=== PATIENT | female | born 1930 | race Hispanic/Latino ===

== ENCOUNTER 2018-01-23 04:28 | Emergency (ER) | payer MEDICARE, OTHER ==
[2018-01-23 05:00] VITALS: BMI 27.6
--- NOTE | 2018-01-23 05:04 | ED PDOC ---
Arrival/HPI - General Time Seen by Provider: 01/23/18 04:33 Historian: Patient - History of Present Illness Narrative History of Present Illness (Text): 01/23/18 05:01 An 87 year old female, whose past medical history includes hypertension, presents to the emergency department complaining of right shoulder, knee, hip, neck and head pain s/p a fall a few weeks ago. The patient denies fevers, chills , headache, dizziness, LOC, chest pain, shortness of breath, dyspnea on exertion , cough, abdominal pain, nausea, vomiting, diarrhea, back pain, neck pain, urinary/bowel changes, or any other complaint. PMD: Dr. Monet Time/Duration: Other (Few Weeks) Symptom Onset: Gradual Symptom Course: Worsening Activities at Onset: Rest, Light Context: Home Past Medical History - Provider Review Nursing Documentation Reviewed: Yes - Infectious Disease Hx of Infectious Diseases: None - Tetanus Immunization Tetanus Immunization: Unknown - Past Medical History Past Medical History: No Previous - Cardiac Hx Hypertension: Yes - Psychiatric Hx Depression: No Hx Emotional Abuse: No Hx Physical Abuse: No Hx Substance Use: No - Past Surgical History Past Surgical History: No Previous - Anesthesia Hx Anesthesia: No Hx Anesthesia Reactions: No Hx Malignant Hyperthermia: No - Suicidal Assessment Feels Threatened In Home Enviroment: No Family/Social History - Physician Review Nursing Documentation Reviewed: Yes Family/Social History: No Known Family HX Smoking Status: Never Smoked Hx Alcohol Use: No Hx Substance Use: No Hx Substance Use Treatment: No Allergies/Home Meds Allergies/Adverse Reactions: Allergies No Known Allergies Allergy (Verified 03/27/16 03:08) Review of Systems - Physician Review All systems were reviewed & negative as marked: Yes - Review of Systems Constitutional: absent: Fevers, Night Sweats Respiratory: absent: SOB, Cough Cardiovascular: absent: Chest Pain, KNAPP Gastrointestinal: absent: Abdominal Pain, Stool Changes, Diarrhea, Nausea, Vomiting Genitourinary Female: absent: Urine Output Changes Musculoskeletal: Other (Right head, neck, shoulder, hip, and knee pain.) Neurological: absent: Headache, Dizziness Physical Exam Vital Signs Temp Pulse Resp BP Pulse Ox 01/23/18 17:10 97.7 F 82 16 130/70 99 01/23/18 10:08 76 16 137/69 99 01/23/18 10:07 78 16 126/78 98 01/23/18 08:00 80 16 130/70 97 01/23/18 05:58 97.7 F 86 20 125/72 96 01/23/18 04:28 138/67 Appearance: Positive for: Non-Toxic, Unkept (Patient covered in fleas and flea bites.) Pain Distress: None Mental Status: Positive for: Alert and Oriented X 3 - Systems Exam Head: Present: Atraumatic, Normocephalic Pupils: Present: PERRL Extroacular Muscles: Present: EOMI Conjunctiva: Present: Normal Mouth: Present: Moist Mucous Membranes Neck: Present: Normal Range of Motion Respiratory/Chest: Present: Clear to Auscultation, Good Air Exchange. No: Respiratory Distress, Accessory Muscle Use Cardiovascular: Present: Regular Rate and Rhythm, Normal S1, S2. No: Murmurs Abdomen: No: Tenderness, Distention, Peritoneal Signs Back: Present: Normal Inspection Upper Extremity: Present: Normal Inspection. No: Cyanosis, Edema Lower Extremity: Present: Normal Inspection. No: Edema Neurological: Present: GCS=15, CN II-XII Intact, Speech Normal Skin: Present: Warm, Dry, Normal Color, Other (Patient covered in fleas and flea bites. ). No: Rashes Psychiatric: Present: Alert, Oriented x 3, Normal Insight, Normal Concentration Medical Decision Making ED Course and Treatment: 01/23/18 05:03 Impression: An 87 year old female presents to the emergency department with a complaint of right head, neck, shoulder, hip and knee pain s/p fall a few weeks ago. Plan: -- Head/ Cervical Spine CT -- EKG -- Pelvis/ Right Knee/ Right Shoulder X-Ray -- Urinalysis -- Labs -- Reassess and disposition Progress Notes: - Lab Interpretations Lab Results: 01/23/18 06:35 01/23/18 06:35 Lab Results 01/23/18 06:35: WBC 3.9 L D, RBC 3.56, Hgb 11.0 L, Hct 31.9 L, MCV 89.6, MCH 30.9, MCHC 34.5, RDW 14.2, Plt Count 218, MPV 10.2, Gran % 64.7, Lymph % (Auto) 21.7 L, [place] % (Auto) 11.0 H, Eos % (Auto) 2.3, Baso % (Auto) 0.3, Gran # 2.53, Lymph # (Auto) 0.9 L, [place] # (Auto) 0.4, Eos # (Auto) 0.1, Baso # (Auto) 0.01 01/23/18 06:35: Sodium 140, Potassium 4.2, Chloride 110 H, Carbon Dioxide 20 L, Anion Gap 14, BUN 34 H, Creatinine 1.6 H, Est GFR ( Amer) 37, Est GFR ( Non-Af Amer) 30, Random Glucose 96, Calcium 8.6, Total Bilirubin 0.7, AST 18, ALT 23, Alkaline Phosphatase 63, Troponin I 0.04 D, Total Protein 7.4, Albumin 3.7, Globulin 3.6, Albumin/Globulin Ratio 1.0 L I have reviewed the lab results: Yes - RAD Interpretation Radiology Orders: 01/23/18 04:59 HEAD W/O CONTRAST [CT] Stat 01/23/18 05:00 CERVICAL SPINE W/O CONTRAST [CT] Stat 01/23/18 05:01 PELVIS W/OBLIQUES (3VWS) [RAD] Stat KNEE RIGHT 2 VIEWS (AP & LAT) [RAD] Stat SHOULDER RIGHT [RAD] Stat 01/23/18 10:08 CHEST,ABDOMEN, PELVIS W/O CONT [CT] Stat - EKG Interpretation Interpreted by ED Physician: Yes Type: 12 lead EKG - Medication Orders Current Medication Orders: Discontinued Medications Sodium Chloride (Sodium Chloride 0.9%) 1,000 mls @ 150 mls/hr IV .Q6H40M BRIAN Last Admin: 01/23/18 10:42 Dose: 150 mls/hr eMAR Start Stop Document 01/23/18 10:42 MS (Rec: 01/23/18 10:44 MS [id number]) Intravenous Solution Start Date 01/23/18 Start Time 10:44 - Transfer of Care Patient signed out to Dr:: rekha - Clairibe Statement The provider has reviewed the documentation as recorded by the Malika Chavarria Provider Clairibe Attestation: All medical record entries made by the Scribe were at my direction and personally dictated by me. I have reviewed the chart and agree that the record accurately reflects my personal performance of the history, physical exam, medical decision making, and the department course for this patient. I have also personally directed, reviewed, and agree with the discharge instructions and disposition. Disposition/Present on Arrival - Present on Arrival Any Indicators Present on Arrival: No History of DVT/PE: No History of Uncontrolled Diabetes: No Urinary Catheter: No History Surgical Site Infection Following: None - Disposition Have Diagnosis and Disposition been Completed?: Yes Diagnosis: Accidental fall, Closed fracture of acromion, Multiple contusions, Dehydration , Acute kidney injury Disposition: HOME/ ROUTINE Disposition Time: 07:00 Condition: STABLE Discharge Instructions (ExitCare): Preventing Falls in the Older Adult, Dehydration, Adult (DC), Shoulder Blade Fracture (DC), Contusion (DC) Print Language: ARMENIAN Additional Instructions: You must follow up with an orthopedic surgeon for the right shoulder fracture - preferably within one week. Follow up with your primary care doctor for further care. Avoid medication such as aleve or motrin (anti-inflammatories) for pain. You may take extra strength Tylenol as needed for pain. MIKKI WAGGONER, thank you for letting us take care of you today. Your provider was Dr. Tan Galaviz and you were treated for pain. The emergency medical care you received today was directed at your acute symptoms. If you were prescribed any medication, please fill it and take as directed. It may take several days for your symptoms to resolve. Return to the Emergency Department if your symptoms worsen, do not improve, or if you have any other problems. Please contact your doctor or call one of the physicians/clinics you have been referred to that are listed on the Patient Visit Information form that is included in your discharge packet. Bring any paperwork you were given at discharge with you along with any medications you are taking to your follow up visit. Our treatment cannot replace ongoing medical care by a primary care provider outside of the emergency department. Thank you for allowing the [facility] team to be part of your care today. If you had an X-Ray or CT scan: A Radiologist will review the ED reading if any change in treatment is needed we will contact you. If you had a blood, urine, or wound culture: It will take several days for the results, if any change in treatment is needed we will contact you. If you had an STI test: It will take 48 hours for the results. Please call after 1 week if you have not heard back. Referrals: Mastromonaco,Edward, DO [Staff Provider] - Follow up with primary Forms: [employer] (Puerto Rican)
[2018-01-23 05:59] VITALS: TEMP 97.7
[2018-01-23 06:53] LABS: BASO # 0.01 K/mm3 (0.0-2.0); BASO % 0.3 % (0.0-3.0); EOS # 0.1 (0.0-0.7); EOS % 2.3 % (1.5-5.0); GRAN # 2.53 (1.4-6.5); GRAN % 64.7 % (50.0-68.0); LYMPH # 0.9 (1.2-3.4); LYMPH % 21.7 % (22.0-35.0); MEAN CELL VOLUME 89.6 fl (80.0-105.0); MEAN CORPUSCULAR HEMOGLOBIN 30.9 pg (25.0-35.0); MEAN CORPUSCULAR HGB CONC 34.5 g/dl (31.0-37.0); MEAN PLATELET VOLUME 10.2 fl (7.0-11.0); MONO # 0.4 (0.1-0.6); RBC 3.56 10^6/uL (3.5-6.1); RED CELL DISTRIBUTION WIDTH 14.2 % (11.5-14.5)
[2018-01-23 07:02] LABS: ALBUMIN 3.7 g/dL (3.0-4.8); CALCIUM 8.6 mg/dL (8.4-10.5)
[2018-01-23 07:04] LABS: WHITE BLOOD COUNT 3.9 10^3/ul (4.5-11.0)
[2018-01-23 07:13] LABS: TROPONIN I 0.04 ng/mL
--- NOTE | 2018-01-23 07:48 | ED PDOC ---
Physical Exam Vital Signs Temp Pulse Resp BP Pulse Ox 01/23/18 08:00 80 16 130/70 97 01/23/18 05:58 97.7 F 86 20 125/72 96 01/23/18 04:28 138/67 - Systems Exam Head: Present: Atraumatic, Normocephalic Pupils: Present: PERRL Extroacular Muscles: Present: EOMI Conjunctiva: Present: Normal Mouth: Present: Moist Mucous Membranes Neck: Present: Normal Range of Motion Respiratory/Chest: Present: Clear to Auscultation, Good Air Exchange. No: Respiratory Distress, Accessory Muscle Use Cardiovascular: Present: Regular Rate and Rhythm, Normal S1, S2. No: Murmurs Abdomen: No: Tenderness, Distention, Peritoneal Signs Back: Present: Normal Inspection Upper Extremity: Present: Normal Inspection. No: Cyanosis, Edema Lower Extremity: Present: Normal Inspection. No: Edema Neurological: Present: GCS=15, CN II-XII Intact, Speech Normal Skin: Present: Warm, Dry, Normal Color. No: Rashes Psychiatric: Present: Alert, Oriented x 3, Normal Insight, Normal Concentration Medical Decision Making ED Course and Treatment: 01/23/18 07:47 Case endorsed to me by Dr. Bailey, pending radiology images. 01/23/18 09:25 CT Head reviewed, shows: HEMORRHAGE: No intracranial hemorrhage. BRAIN: No mass effect or edema. Chronic microvascular changes are seen in the periventricular white matter and basal ganglia. VENTRICLES: Unremarkable. No hydrocephalus. CALVARIUM: Unremarkable. PARANASAL SINUSES: Unremarkable as visualized. No significant inflammatory changes. MASTOID AIR CELLS: Unremarkable as visualized. No inflammatory changes. OTHER FINDINGS: None. IMPRESSION: No acute findings 01/23/18 09:33 VERTEBRAE: There is 4 mm degenerative anterior listhesis of C3 on C4 and C4 on C5. There is reversal of normal cervical lordosis with mild cervical kyphosis centered at C4-5. There is diffuse bone demineralization. There is no acute fracture or traumatic anterior listhesis. The craniocervical junction is normal. 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 DISCS/SPINAL CANAL/NEURAL FORAMINA: Evaluation of the discs and spinal canal is limited on noncontrast CT examination. Allowing for this, there is multilevel degenerative disc disease due to combination of disc osteophyte complexes, uncovertebral joint hypertrophy and multilevel facet arthropathy, worse at C5-6 with mild left neural foraminal narrowing. No spinal canal stenosis. PARASPINAL SOFT TISSUES: The paraspinous soft tissues are normal. OTHER FINDINGS: There is a multinodular thyroid gland. IMPRESSION: No acute fracture or traumatic anterior listhesis. 01/23/18 10:18 Xray Rt Knee reviewed, shows: BONES: Normal. No fracture. JOINTS: Normal. No osteoarthritis. JOINT EFFUSION: None. OTHER FINDINGS: None. IMPRESSION: Normal radiographs of the right knee. Xray reviewed, shows: There is no evidence of fracture. There are no significant degenerative changes IMPRESSION: Negative study XRay Rt Shoulder reviewed, shows: BONES: There is a nondisplaced fracture of the acromion. The clavicle is intact. JOINTS: There is superior subluxation of the humeral head suggesting an underlying rotator cuff tear SOFT TISSUES: Normal. OTHER FINDINGS: None. IMPRESSION: There is superior subluxation of the humeral head suggesting an underlying rotator cuff tear 01/23/18 11:09 CT chest/abdomen/pelvis reviewed, shows: LUNGS: There is some linear scarring in the left lower lobe. MEDIASTINUM: Unremarkable. Normal caliber aorta and pulmonary arterial trunk. Normal size heart. LYMPH NODES: Unremarkable. PLEURA: Unremarkable. No pneumothorax. No pleural fluid. BONES: Unremarkable OTHER FINDINGS: None. CT ABDOMEN AND PELVIS: LIVER: Unremarkable. No gross lesion or ductal dilatation. GALLBLADDER AND BILE DUCTS: Unremarkable. PANCREAS: Unremarkable. No gross lesion or ductal dilatation. SPLEEN: Unremarkable. ADRENALS: Unremarkable. No mass. KIDNEYS AND URETERS: Unremarkable. No hydronephrosis. No solid mass. VASCULATURE: Unremarkable. No aortic aneurysm. BOWEL: Unremarkable. No obstruction. No gross mural thickening. APPENDIX: Normal appendix. PERITONEUM: Unremarkable. No free fluid. No free air. LYMPH NODES: Unremarkable. No enlarged lymph nodes. BLADDER: Unremarkable. REPRODUCTIVE: Unremarkable. BONES: No acute fracture. OTHER FINDINGS: None. IMPRESSION: No acute findings 01/23/18 12:07 patient does not want to stay in the hospital, patient lives at home with several family members and has adequate social support. patient states she is able to ambulate at home with her walker and feels safe being at home. patient has been seen by Juliann, social work, has discussed with patient and family regarding home health care and medical proxy. patient remained stable throughout ED course and will follow up with her regular pcp. - Lab Interpretations Lab Results: 01/23/18 06:35 01/23/18 06:35 Lab Results 01/23/18 06:35: WBC 3.9 L D, RBC 3.56, Hgb 11.0 L, Hct 31.9 L, MCV 89.6, MCH 30.9, MCHC 34.5, RDW 14.2, Plt Count 218, MPV 10.2, Gran % 64.7, Lymph % (Auto) 21.7 L, [place] % (Auto) 11.0 H, Eos % (Auto) 2.3, Baso % (Auto) 0.3, Gran # 2.53, Lymph # (Auto) 0.9 L, [place] # (Auto) 0.4, Eos # (Auto) 0.1, Baso # (Auto) 0.01 01/23/18 06:35: Sodium 140, Potassium 4.2, Chloride 110 H, Carbon Dioxide 20 L, Anion Gap 14, BUN 34 H, Creatinine 1.6 H, Est GFR ( Amer) 37, Est GFR ( Non-Af Amer) 30, Random Glucose 96, Calcium 8.6, Total Bilirubin 0.7, AST 18, ALT 23, Alkaline Phosphatase 63, Troponin I 0.04 D, Total Protein 7.4, Albumin 3.7, Globulin 3.6, Albumin/Globulin Ratio 1.0 L - RAD Interpretation Radiology Orders: 01/23/18 04:59 HEAD W/O CONTRAST [CT] Stat 01/23/18 05:00 CERVICAL SPINE W/O CONTRAST [CT] Stat 01/23/18 05:01 PELVIS W/OBLIQUES (3VWS) [RAD] Stat KNEE RIGHT 2 VIEWS (AP & LAT) [RAD] Stat SHOULDER RIGHT [RAD] Stat 01/23/18 10:08 CHEST,ABDOMEN, PELVIS W/O CONT [CT] Stat - Medication Orders Current Medication Orders: Sodium Chloride (Sodium Chloride 0.9%) 1,000 mls @ 150 mls/hr IV .Q6H40M BRIAN Last Admin: 01/23/18 10:42 Dose: 150 mls/hr eMAR Start Stop Document 01/23/18 10:42 MS (Rec: 01/23/18 10:44 MS [id number]) Intravenous Solution Start Date 01/23/18 Start Time 10:44 - Scribe Statement The provider has reviewed the documentation as recorded by the Scribgarfield Herrera All medical record entries made by the Scribe were at my direction and personally dictated by me. I have reviewed the chart and agree that the record accurately reflects my personal performance of the history, physical exam, medical decision making, and the department course for this patient. I have also personally directed, reviewed, and agree with the discharge instructions and disposition. Disposition/Present on Arrival - Present on Arrival Any Indicators Present on Arrival: No History of DVT/PE: No History of Uncontrolled Diabetes: No Urinary Catheter: No History of Decub. Ulcer: No History Surgical Site Infection Following: None - Disposition Have Diagnosis and Disposition been Completed?: Yes Diagnosis: Accidental fall, Closed fracture of acromion, Multiple contusions, Dehydration , Acute kidney injury Disposition: HOME/ ROUTINE Disposition Time: 12:10 Patient Plan: Discharge Patient Problems: Current Active Problems Problem Status Onset Accidental fall Acute Acute kidney injury Acute Closed fracture of acromion Acute Dehydration Acute Multiple contusions Acute Condition: STABLE Discharge Instructions (ExitCare): Preventing Falls in the Older Adult, Dehydration, Adult (DC), Shoulder Blade Fracture (DC), Contusion (DC) Print Language: GABONESE Additional Instructions: You must follow up with an orthopedic surgeon for the right shoulder fracture - preferably within one week. Follow up with your primary care doctor for further care. Avoid medication such as aleve or motrin (anti-inflammatories) for pain. You may take extra strength Tylenol as needed for pain. MIKKI WAGGONER, thank you for letting us take care of you today. Your provider was Dr. Tan Galaviz and you were treated for pain. The emergency medical care you received today was directed at your acute symptoms. If you were prescribed any medication, please fill it and take as directed. It may take several days for your symptoms to resolve. Return to the Emergency Department if your symptoms worsen, do not improve, or if you have any other problems. Please contact your doctor or call one of the physicians/clinics you have been referred to that are listed on the Patient Visit Information form that is included in your discharge packet. Bring any paperwork you were given at discharge with you along with any medications you are taking to your follow up visit. Our treatment cannot replace ongoing medical care by a primary care provider outside of the emergency department. Thank you for allowing the [facility] team to be part of your care today. If you had an X-Ray or CT scan: A Radiologist will review the ED reading if any change in treatment is needed we will contact you. If you had a blood, urine, or wound culture: It will take several days for the results, if any change in treatment is needed we will contact you. If you had an STI test: It will take 48 hours for the results. Please call after 1 week if you have not heard back. Referrals: Ba Soliz, DO [Staff Provider] - Follow up with primary Forms: [employer] (Faroese)
[2018-01-23 09:00] VITALS: RESP 16
--- NOTE | 2018-01-23 09:13 | CT ---
Date of service: 01/23/2018 PROCEDURE: CT HEAD WITHOUT CONTRAST. HISTORY: fall COMPARISON: 03/27/2016 TECHNIQUE: Axial computed tomography images were obtained through the head/brain without intravenous contrast. Radiation dose: Total exam DLP = 982 mGy-cm. This CT exam was performed using one or more of the following dose reduction techniques: Automated exposure control, adjustment of the mA and/or kV according to patient size, and/or use of iterative reconstruction technique. FINDINGS: HEMORRHAGE: No intracranial hemorrhage. BRAIN: No mass effect or edema. Chronic microvascular changes are seen in the periventricular white matter and basal ganglia. VENTRICLES: Unremarkable. No hydrocephalus. CALVARIUM: Unremarkable. PARANASAL SINUSES: Unremarkable as visualized. No significant inflammatory changes. MASTOID AIR CELLS: Unremarkable as visualized. No inflammatory changes. OTHER FINDINGS: None. IMPRESSION: No acute findings
--- NOTE | 2018-01-23 09:18 | CARD ---
APPROVED REPORT Date of service: 01/23/2018 EKG Measurement Heart [id number] <Conclusion> Normal sinus rhythm Poor R Progression V1-V3.
--- NOTE | 2018-01-23 09:28 | CT ---
Date of service: 01/23/2018 PROCEDURE: CT Cervical Spine without contrast HISTORY: fall COMPARISON: None available. TECHNIQUE: Axial computed tomography images were obtained of the cervical spine without the use of intravenous contrast. Coronal and sagittal reformatted images were created and reviewed. Radiation dose: Total exam DLP = mGy-cm. This CT exam was performed using one or more of the following dose reduction techniques: Automated exposure control, adjustment of the mA and/or kV according to patient size, and/or use of iterative reconstruction technique. FINDINGS: VERTEBRAE: There is 4 mm degenerative anterior listhesis of C3 on C4 and C4 on C5. There is reversal of normal cervical lordosis with mild cervical kyphosis centered at C4-5. There is diffuse bone demineralization. There is no acute fracture or traumatic anterior listhesis. The craniocervical junction is normal. 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 DISCS/SPINAL CANAL/NEURAL FORAMINA: Evaluation of the discs and spinal canal is limited on noncontrast CT examination. Allowing for this, there is multilevel degenerative disc disease due to combination of disc osteophyte complexes, uncovertebral joint hypertrophy and multilevel facet arthropathy, worse at C5-6 with mild left neural foraminal narrowing. No spinal canal stenosis. PARASPINAL SOFT TISSUES: The paraspinous soft tissues are normal. OTHER FINDINGS: There is a multinodular thyroid gland. IMPRESSION: No acute fracture or traumatic anterior listhesis.
--- NOTE | 2018-01-23 10:09 | RAD ---
Date of service: 01/23/2018 PROCEDURE: Pelvis three views HISTORY: fall COMPARISON: 04/04/2012 TECHNIQUE: Three views FINDINGS: There is no evidence of fracture. There are no significant degenerative changes IMPRESSION: Negative study
--- NOTE | 2018-01-23 10:14 | RAD ---
Date of service: 01/23/2018 PROCEDURE: Right Knee Radiographs. HISTORY: fall COMPARISON: None. FINDINGS: BONES: Normal. No fracture. JOINTS: Normal. No osteoarthritis. JOINT EFFUSION: None. OTHER FINDINGS: None. IMPRESSION: Normal radiographs of the right knee.
[2018-01-23] MEDS ORDERED: Sodium Chloride 0.9% 1,000 ML IV SCH (10:15)
--- NOTE | 2018-01-23 10:16 | RAD ---
Date of service: 01/23/2018 PROCEDURE: Radiographs of the Right Shoulder HISTORY: fall COMPARISON: No prior. FINDINGS: BONES: There is a nondisplaced fracture of the acromion. The clavicle is intact. JOINTS: There is superior subluxation of the humeral head suggesting an underlying rotator cuff tear SOFT TISSUES: Normal. OTHER FINDINGS: None. IMPRESSION: There is superior subluxation of the humeral head suggesting an underlying rotator cuff tear
--- NOTE | 2018-01-23 11:08 | CT ---
Date of service: 01/23/2018 PROCEDURE: CT Chest, Abdomen and Pelvis without intravenous contrast HISTORY: multi trauma, pelvic fracture, scapula fx COMPARISON: None. TECHNIQUE: Radiation dose: Total exam DLP = 1123 mGy-cm. This CT exam was performed using one or more of the following dose reduction techniques: Automated exposure control, adjustment of the mA and/or kV according to patient size, and/or use of iterative reconstruction technique. FINDINGS: CT CHEST WITHOUT CONTRAST: LUNGS: There is some linear scarring in the left lower lobe. MEDIASTINUM: Unremarkable. Normal caliber aorta and pulmonary arterial trunk. Normal size heart. LYMPH NODES: Unremarkable. PLEURA: Unremarkable. No pneumothorax. No pleural fluid. BONES: Unremarkable OTHER FINDINGS: None. CT ABDOMEN AND PELVIS: LIVER: Unremarkable. No gross lesion or ductal dilatation. GALLBLADDER AND BILE DUCTS: Unremarkable. PANCREAS: Unremarkable. No gross lesion or ductal dilatation. SPLEEN: Unremarkable. ADRENALS: Unremarkable. No mass. KIDNEYS AND URETERS: Unremarkable. No hydronephrosis. No solid mass. VASCULATURE: Unremarkable. No aortic aneurysm. BOWEL: Unremarkable. No obstruction. No gross mural thickening. APPENDIX: Normal appendix. PERITONEUM: Unremarkable. No free fluid. No free air. LYMPH NODES: Unremarkable. No enlarged lymph nodes. BLADDER: Unremarkable. REPRODUCTIVE: Unremarkable. BONES: No acute fracture. OTHER FINDINGS: None. IMPRESSION: No acute findings
[2018-01-23 17:09] VITALS: O2SAT 99
[2018-01-23 17:13] VITALS: BP 130/70; PULSE 82
== END 2018-01-23 12:30 | disposition home or self-care (01) ==
LOC: ED 04:28
DX: S42.124A Nondisplaced fracture of acromial process, right shoulder, initial encounter for closed fracture (principal); W19.XXXA Unspecified fall, initial encounter; Y92.9 Unspecified place or not applicable; E86.0 Dehydration; N17.9 Acute kidney failure, unspecified; I10 Essential (primary) hypertension
CPT/HCPCS: 70450; 71250; 72125; 72190; 73030; 73560; 74176; 80053; 84484; 85025; 93005; 99285; J7030